=== PATIENT | female | born 1940 | race Caucasian/White ===

== ENCOUNTER 2016-03-31 14:58 | Outpatient (CLI) | payer MEDICARE, OTHER | END 2016-03-31 14:59 | disposition home or self-care (01) | DX: E87.6 Hypokalemia (principal); E53.8 Deficiency of other specified B group vitamins ==

== ENCOUNTER 2019-12-14 13:16 | Emergency (ER) | payer MEDICARE, OTHER ==
--- NOTE | 2019-12-14 13:44 | ED Physician Documentation ---
PD HPI HEAD INJURY - Stated complaint Stated Complaint: GLF,NECK PX - Chief complaint Chief Complaint: Trauma Hd/Nk - History obtained from History obtained from: Patient - Additional information Additional information: 79-year-old woman with history of asthma otherwise very healthy was taking a hike about 2 hours ago and tripped on a tree root and fell forward hitting her forehead on the ground. She feels like her head is okay but she has moderate to severe internal neck pain. No other injuries. She did not lose consciousness. She is not anticoagulated. Declines pain medication on initial evaluation. Review of Systems Ten Systems: 10 systems reviewed and negative Constitutional: reports: Reviewed and negative Eyes: reports: Reviewed and negative Ears: reports: Reviewed and negative Nose: reports: Reviewed and negative Throat: reports: Reviewed and negative Cardiac: reports: Reviewed and negative Respiratory: reports: Reviewed and negative PD PAST MEDICAL HISTORY - Past Medical History Past Medical History: Yes Respiratory: Asthma - Past Surgical History Past Surgical History: Yes /TELEVISION ENGINEER: Hysterectomy HEENT: Tonsil/Adenoidectomy - Present Medications Home Medications: Ambulatory Orders Medication Instructions Recorded Confirmed Cyanocobalamin/Folic Acid [Vitamin 1 tab PO DAILY 12/06/14 06/02/15 U27-Nuyqh Acid Tablet] Budesonide/Formoterol Fumarate 2 puffs INH DAILY 05/12/15 06/02/15 [Symbicort 80-4.5 Mcg Inhaler] Levalbuterol [Xopenex] 2 puffs INH Q4HR PRN 05/12/15 06/02/15 Calcium Carbonate/Vitamin D3 1 tab PO DAILY 06/02/15 06/02/15 [Calcium 600 + Vit D 400 Tablet] - Allergies Allergies/Adverse Reactions: Allergies Allergy/AdvReac Type Severity Reaction Status Date / Time Sulfa (Sulfonamide Allergy Rash Verified 05/12/15 08:30 Antibiotics) Latex, Natural Rubber AdvReac Rash Verified 12/14/19 13:23 - Social History Does the pt smoke?: No Smoking Status: Never smoker PD ED PE NORMAL - Vitals Vital signs reviewed: Yes - General General: Alert and oriented X 3, No acute distress - HEENT HEENT: PERRL, EOMI - Neck Neck: Other (She cannot range her neck at all due to pain. No overt midline spinal tenderness though.) - Cardiac Cardiac: RRR, No murmur - Respiratory Respiratory: No respiratory distress, Clear bilaterally - Abdomen Abdomen: Non tender - Back Back: No CVA TTP, No spinal TTP - Derm Derm: Normal color, Warm and dry - Extremities Extremities: No edema, No calf tenderness / cord - Neuro Neuro: Alert and oriented X 3, No motor deficit, No sensory deficit, Normal speech Results - Vitals Vitals: Vital Signs - 24 hr 12/13/ 13:24 Temperature 36.5 C Heart Rate 84 Respiratory 14 Rate Blood Pressure 150/95 H O2 Saturation 98 Oxygen O2 Source Room air - Rads (name of study) CT Head and Cspine Radiology: EMP read contemporaneously (Head normal, Type 2 odontoid frx, C5 posterior arch frx) PD MEDICAL DECISION MAKING - ED course ED course: 79-year-old woman presents with isolated head and neck injury after ground-level fall. CT imaging demonstrates a type II odontoid fracture and C5 posterior arch fracture. She was placed in a c-collar on my evaluation initially. She is maintained in C-spine precautions. She was accepted to [facility] ED for further evaluation and treatment of this unstable cervical spine fracture by Dr. Leong for Dr. Tere Christy. Departure - Departure Disposition: 02 Transfer Acute Care Hosp Clinical Impression: Cervical spine fracture Qualifiers: Encounter type: initial encounter Cervical vertebra fracture level: C2 Fracture type: closed Fracture morphology: type II dens Fracture alignment: nondisplaced Qualified Code(s): S12.112A - Nondisplaced Type II dens fracture, initial encounter for closed fracture Head injury Qualifiers: Encounter type: initial encounter Qualified Code(s): S09.90XA - Unspecified injury of head, initial encounter C5 cervical fracture Qualifiers: Encounter type: initial encounter Fracture type: closed Fracture morphology: other fracture Fracture alignment: nondisplaced Qualified Code(s): S12.491A - Other nondisplaced fracture of fifth cervical vertebra, initial encounter for closed fracture Condition: Serious
--- NOTE | 2019-12-14 14:23 | CT Report ---
PROCEDURE: CERVICAL SPINE WO INDICATIONS: neck injury TECHNIQUE: Noncontrast 3 mm thick sections acquired from the skull base to the T4 level. Sagittal and coronal r eformats were then constructed. For radiation dose reduction, the following was used: automated exp osure control, adjustment of mA and/or kV according to patient size. COMPARISON: None. FINDINGS: Image quality: Excellent. Bones: There is a minimally displaced fracture at the C5 spinous process which extends through the po sterior arch (series 5/image 33). There is a minimally displaced type II odontoid fracture. Severe d egenerative changes are noted within the mid cervical spine. Soft tissues: Prevertebral soft tissues are normal in thickness. No paravertebral hematomas. There is extensive right and moderate left apical pulmonary scarring. Multiple calcified nodules are visual ized within the right thyroid lobe. Atheromatous calcifications are present within the left carotid b ulb. 1. Minimally displaced type II odontoid fracture. Please note this is an unstable fracture. 2. Minimally displaced posterior C5 fracture. These findings were discussed with Dr. Powell at 2:18 PM on 12/14/2019. 3. Severe degenerative change of the cervical spine. 4. Calcified right thyroid nodules noted. If further characterization is warranted, nonemergent thyro id ultrasound could be used. Reviewed by: Lashanda Rapp MD on 12/14/2019 2:22 PM PDT Approved by: Lashanda Rapp MD on 12/14/2019 2:22 PM PDT Station ID: [id number]
--- NOTE | 2019-12-14 14:25 | CT Report ---
PROCEDURE: HEAD WO INDICATIONS: head injury TECHNIQUE: Noncontrast 4.5 mm thick angled axial sections acquired from the foramen magnum to the vertex. For r adiation dose reduction, the following was used: automated exposure control, adjustment of mA and/or kV according to patient size. COMPARISON: None. FINDINGS: Image quality: Excellent. CSF spaces: Basal cisterns are patent. No extra-axial fluid collections. Ventricles are normal in size and shape. Brain: No midline shift. No intracranial masses or hemorrhage. Mild findings likely associated with chronic microvascular ischemia including volume loss and white matter changes are noted. Mercedes-white matter interface is normal. Skull and face: Calvarium and visualized facial bones are intact, without suspicious lesions. Sinuses: Visualized sinuses and mastoids are clear. IMPRESSION: No acute intracranial findings. Reviewed by: Lashanda Rapp MD on 12/14/2019 2:23 PM PDT Approved by: Lashanda Rapp MD on 12/14/2019 2:23 PM PDT Station ID: [id number]
[2019-12-14 15:30] VITALS: BP 143/81
[2019-12-14 15:41] LABS: BASOPHILS % (AUTO) 0.4 %; EOSINOPHILS % (AUTO) 0.1 %; HGB - HEMOGLOBIN 13.3 g/dL (12.0-16.0); LYMPHOCYTES % (AUTO) 12.7 %; MEAN CORPUSCULAR HEMOGLOBIN 30.3 pg (27.0-31.0); MEAN CORPUSCULAR HGB CONC 33.4 g/dL (32.0-36.0); MEAN CORPUSCULAR VOLUME 90.7 fL (81.0-99.0); MEAN PLATELET VOLUME 8.8 fL (7.9-10.8); MONOCYTES # (AUTO) 0.5 10^3/uL (0.0-1.0); NEUTROPHILS # (AUTO) 6.5 10^3/uL (1.5-6.6); NEUTROPHILS % (AUTO) 80.3 %; PLT - PLATELET COUNT 266 10^3/uL (130-450); RED BLOOD COUNT 4.39 10^6/uL (4.20-5.40); RED CELL DISTRIBUTION WIDTH 12.5 % (12.0-15.0); WHITE BLOOD COUNT 8.1 x10^3/uL (4.8-10.8)
[2019-12-14 15:47] LABS: PT - PROTHROMBIN TIME 11.2 secs (9.9-12.6)
[2019-12-14 15:49] LABS: CREATININE 0.7 mg/dL (0.4-1.0)
== END 2019-12-14 16:30 | disposition short-term general hospital (02) ==
LOC: ED 13:16
DX: S12.112A Nondisplaced Type II dens fracture, initial encounter for closed fracture (principal); S12.110A Anterior displaced Type II dens fracture, initial encounter for closed fracture; S12.400A Unspecified displaced fracture of fifth cervical vertebra, initial encounter for closed fracture; W01.198A Fall on same level from slipping, tripping and stumbling with subsequent striking against other object, initial encounter; Y93.01 Activity, walking, marching and hiking; Y92.821 Forest as the place of occurrence of the external cause
CPT/HCPCS: 36415; 70450; 72125; 80048; 85025; 85610; 99284; 99285

== ENCOUNTER 2020-01-30 13:32 | Outpatient (CLI) | payer MEDICARE, OTHER ==
[2020-01-30 19:54] LABS: BASOPHILS % (AUTO) 0.4 %; EOSINOPHILS % (AUTO) 0.7 %; HGB - HEMOGLOBIN 12.7 g/dL (12.0-16.0); LYMPHOCYTES # (AUTO) 1.2 10^3/uL (1.5-3.5); LYMPHOCYTES % (AUTO) 20.7 %; MEAN CORPUSCULAR HEMOGLOBIN 29.9 pg (27.0-31.0); MEAN CORPUSCULAR HGB CONC 32.2 g/dL (32.0-36.0); MEAN CORPUSCULAR VOLUME 92.7 fL (81.0-99.0); MEAN PLATELET VOLUME 9.9 fL (7.9-10.8); MONOCYTES # (AUTO) 0.5 10^3/uL (0.0-1.0); NEUTROPHILS # (AUTO) 3.9 10^3/uL (1.5-6.6); NEUTROPHILS % (AUTO) 68.8 %; PLT - PLATELET COUNT 325 10^3/uL (130-450); RED BLOOD COUNT 4.25 10^6/uL (4.20-5.40); RED CELL DISTRIBUTION WIDTH 13.2 % (12.0-15.0); WHITE BLOOD COUNT 5.7 x10^3/uL (4.8-10.8)
[2020-01-30 20:19] LABS: ALBUMIN 4.3 g/dL (3.2-5.5); ALBUMIN/GLOBULIN RATIO 1.7 (1.0-2.2); BILIRUBIN,TOTAL 0.6 mg/dL (0.2-1.0); CALCIUM 9.6 mg/dL (8.5-10.3); CREATININE 0.7 mg/dL (0.4-1.0); MAGNESIUM 2.1 mg/dL (1.7-2.8); TOTAL PROTEIN 6.9 g/dL (6.7-8.2)
== END 2020-01-30 13:33 | disposition home or self-care (01) ==
LOC: LAB.S 13:32
PROVIDERS: ATTEND Internal Medicine
DX: R42 Dizziness and giddiness (principal); E87.8 Other disorders of electrolyte and fluid balance, not elsewhere classified
CPT/HCPCS: 36415; 80053; 83735; 85025

== ENCOUNTER 2022-02-06 16:58 | Outpatient (CLI) | payer MEDICARE, OTHER | END 2022-02-06 16:59 | disposition home or self-care (01) | LOC: LAB.S 16:58 | PROVIDERS: ATTEND Physician Assistant | DX: R30.0 Dysuria (principal) | CPT/HCPCS: 87077; 87086; 87181 ==

== ENCOUNTER 2022-06-02 14:53 | Outpatient (CLI) | payer MEDICARE, OTHER ==
[2022-06-02 19:38] LABS: BASOPHILS % (AUTO) 0.6 %; EOSINOPHILS # (AUTO) 0.1 10^3/uL (0.0-0.7); EOSINOPHILS % (AUTO) 0.7 %; HCT - HEMATOCRIT 40.4 % (37.0-47.0); HGB - HEMOGLOBIN 13.3 g/dL (12.0-16.0); LYMPHOCYTES # (AUTO) 1.6 10^3/uL (1.5-3.5); LYMPHOCYTES % (AUTO) 23.5 %; MEAN CORPUSCULAR HEMOGLOBIN 30.2 pg (27.0-31.0); MEAN CORPUSCULAR HGB CONC 32.9 g/dL (32.0-36.0); MEAN CORPUSCULAR VOLUME 91.8 fL (81.0-99.0); MEAN PLATELET VOLUME 9.3 fL (7.9-10.8); MONOCYTES # (AUTO) 0.7 10^3/uL (0.0-1.0); MONOCYTES % (AUTO) 9.8 %; NEUTROPHILS # (AUTO) 4.5 10^3/uL (1.5-6.6); NEUTROPHILS % (AUTO) 65.1 %; PLT - PLATELET COUNT 312 10^3/uL (130-450); RED CELL DISTRIBUTION WIDTH 13.1 % (12.0-15.0); WHITE BLOOD COUNT 6.9 x10^3/uL (4.8-10.8)
[2022-06-02 19:52] LABS: ALBUMIN 4.4 g/dL (3.2-5.5); ALBUMIN/GLOBULIN RATIO 2.1 (1.0-2.2); BILIRUBIN,TOTAL 0.5 mg/dL (0.2-1.0); CREATININE 0.5 mg/dL (0.4-1.0); POTASSIUM 4.3 mmol/L (3.5-5.0); TOTAL PROTEIN 6.5 g/dL (6.7-8.2)
== END 2022-06-02 14:54 | disposition home or self-care (01) ==
LOC: LAB.S 14:53
PROVIDERS: ATTEND Internal Medicine
DX: R30.0 Dysuria (principal); Z87.440 Personal history of urinary (tract) infections
CPT/HCPCS: 36415; 80053; 85025; 87086

== ENCOUNTER 2022-06-13 12:55 | Outpatient (CLI) | payer MEDICARE, OTHER | END 2022-06-13 12:56 | disposition home or self-care (01) | LOC: LAB.S 12:55 | PROVIDERS: ATTEND Internal Medicine | DX: R30.0 Dysuria (principal); Z87.440 Personal history of urinary (tract) infections | CPT/HCPCS: 87086 ==

== ENCOUNTER 2022-07-06 14:11 | Outpatient (CLI) | payer MEDICARE, OTHER ==
--- NOTE | 2022-07-07 11:21 | Ultrasound Report ---
PROCEDURE: Retroperitoneal INDICATIONS: HX OF CHRONIC URINARY TRACT INFECTION TECHNIQUE: Real-time scanning was performed of the retroperitoneal organs, with image documentation. COMPARISON: None. FINDINGS: Kidneys: Kidneys are normal in size. Right kidney measures 9.8 cm long; left kidney measures 10.3 c m long. Right renal cortical thickness is 1.0 cm; left renal cortical thickness is 1.1 cm. No solid masses, hydronephrosis, or nephrolithiasis. Bladder: Pre-void bladder volume is 105 mL. Post-void residual is 6 mL. Pre-void images demonstrat e no intraluminal masses or stones. On pre-void images, both ureteral jets are noted with color Dopp ler interrogation. (Of note, ureteral jets may not be detectable in up to 25% of cases due to insuff icient differences in specific gravity between ureteral and bladder urine). Miscellaneous: No free abdominal fluid. IMPRESSION: No hydronephrosis or evidence of nephrolithiasis. Reviewed by: Robson Sheriff MD on 07/07/2022 11:20 AM PDT Approved by: Robson Sheriff MD on 07/07/2022 11:20 AM PDT Station ID: [id number]
== END 2022-07-06 14:12 | disposition home or self-care (01) ==
LOC: DI 14:11
PROVIDERS: ATTEND Internal Medicine
DX: Z87.440 Personal history of urinary (tract) infections (principal)

== ENCOUNTER 2022-07-13 07:00 | Outpatient (CLI) | payer MEDICARE, OTHER ==
[2022-07-13 14:45] LABS: BILIRUBIN,URINE NEGATIVE (NEGATIVE); GLUCOSE, URINE (UA) NEGATIVE (NEGATIVE); KETONES,URINE (UA) NEGATIVE (NEGATIVE); LEUKOCYTE ESTERASE, URINE MODERATE (NEGATIVE); NITRITE,URINE NEGATIVE (NEGATIVE); OCCULT BLOOD,URINE MODERATE (NEGATIVE); PROTEIN,URINE NEGATIVE (NEGATIVE); UROBILINOGEN,URINE 0.2 (NORMAL) E.U./dL (NORMAL)
[2022-07-13 14:58] LABS: CLARITY,URINE HAZY (CLEAR); WBC,URINE >25 /HPF (0-5)
[2022-07-13 14:59] LABS: BACTERIA,URINE Few /HPF (None Seen); RBC,URINE 0-5 /HPF (0-5); SQUAMOUS EPITHELIAL CELL,UR NONE SEEN (<= Few); WBC CLUMPS,URINE PRESENT
== END 2022-07-13 23:59 | disposition home or self-care (01) ==
LOC: LAB.S 07:00
PROVIDERS: ATTEND Internal Medicine
DX: R30.0 Dysuria (principal)
CPT/HCPCS: 81001; 87086

== ENCOUNTER 2022-07-25 08:00 | Outpatient (CLI) | payer MEDICARE, OTHER ==
[2022-07-25 14:53] LABS: BILIRUBIN,URINE NEGATIVE (NEGATIVE); GLUCOSE, URINE (UA) NEGATIVE (NEGATIVE); KETONES,URINE (UA) NEGATIVE (NEGATIVE); LEUKOCYTE ESTERASE, URINE LARGE (NEGATIVE); NITRITE,URINE NEGATIVE (NEGATIVE); OCCULT BLOOD,URINE MODERATE (NEGATIVE); PROTEIN,URINE NEGATIVE (NEGATIVE); UROBILINOGEN,URINE 0.2 (NORMAL) E.U./dL (NORMAL)
[2022-07-25 15:32] LABS: BACTERIA,URINE Many /HPF (None Seen); CLARITY,URINE CLOUDY (CLEAR); RBC,URINE 0-5 /HPF (0-5); SQUAMOUS EPITHELIAL CELL,UR FEW Squamous (<= Few); WBC CLUMPS,URINE PRESENT; WBC,URINE >25 /HPF (0-5)
== END 2022-07-25 23:59 | disposition home or self-care (01) ==
LOC: LAB.S 08:00
PROVIDERS: ATTEND Internal Medicine
DX: R30.0 Dysuria (principal); Z87.440 Personal history of urinary (tract) infections
CPT/HCPCS: 81001; 87077; 87086; 87181

== ENCOUNTER 2023-01-16 11:29 | Outpatient (CLI) | payer MEDICARE, OTHER ==
[2023-01-16 14:38] LABS: BASOPHILS % (AUTO) 0.4 %; EOSINOPHILS % (AUTO) 0.6 %; HCT - HEMATOCRIT 41.5 % (37.0-47.0); HGB - HEMOGLOBIN 13.6 g/dL (12.0-16.0); LYMPHOCYTES # (AUTO) 1.2 10^3/uL (1.5-3.5); LYMPHOCYTES % (AUTO) 22.7 %; MEAN CORPUSCULAR HEMOGLOBIN 29.7 pg (27.0-31.0); MEAN CORPUSCULAR HGB CONC 32.8 g/dL (32.0-36.0); MEAN CORPUSCULAR VOLUME 90.6 fL (81.0-99.0); MEAN PLATELET VOLUME 9.5 fL (7.9-10.8); MONOCYTES # (AUTO) 0.5 10^3/uL (0.0-1.0); MONOCYTES % (AUTO) 10.4 %; NEUTROPHILS # (AUTO) 3.3 10^3/uL (1.5-6.6); NEUTROPHILS % (AUTO) 65.5 %; PLT - PLATELET COUNT 285 10^3/uL (130-450); RED BLOOD COUNT 4.58 10^6/uL (4.20-5.40); RED CELL DISTRIBUTION WIDTH 12.8 % (12.0-15.0); WHITE BLOOD COUNT 5.1 x10^3/uL (4.8-10.8)
[2023-01-16 15:00] LABS: % IRON SATURATION 31 % (20-50); ALBUMIN 4.5 g/dL (3.2-5.5); ALBUMIN/GLOBULIN RATIO 2.1 (1.0-2.2); ALKALINE PHOSPHATASE 76 IU/L (42-121); ALT ALANINE AMINOTRANSFERASE 13 IU/L (10-60); AST ASPARTATE AMINOTRANSFERASE 20 IU/L (10-42); BILIRUBIN,TOTAL 0.7 mg/dL (0.2-1.0); BUN - BLOOD UREA NITROGEN 9 mg/dL (6-20); CALCIUM 9.7 mg/dL (8.5-10.3); CARBON DIOXIDE - CO2 32 mmol/L (21-32); CHLORIDE 98 mmol/L (101-111); CHOL/HDL RATIO 2.5 (<4.4); CHOLESTEROL 211 mg/dL; CREATININE 0.6 mg/dL (0.6-1.3); CRP - C-REACTIVE PROTEIN < 0.5 mg/dL (<0.5); GFR - MDRD 95 (>89); GLUCOSE 85 mg/dL (74-104); HDL CHOLESTEROL 86 mg/dL; IRON 110 ug/dL (50-212); LDL CHOLESTEROL,CALCULATED 115 mg/dL; LDL/HDL RATIO 1.3 (<4.4); POTASSIUM 4.2 mmol/L (3.5-4.5); SODIUM 133 mmol/L (135-145); TOTAL IRON BINDING CAPACITY 351 ug/dL (250-450); TOTAL PROTEIN 6.6 g/dL (6.4-8.9); TRANSFERRIN 251 mg/dL (203-362); TRIGLYCERIDES 51 mg/dL (48-352); VLDL CHOLESTEROL 10 mg/dL
[2023-01-16 15:06] LABS: THYROID STIMULATING HORMONE 2.34 uIU/mL (0.34-5.60)
== END 2023-01-16 11:30 | disposition home or self-care (01) ==
LOC: LAB.S 11:29
PROVIDERS: ATTEND Internal Medicine
DX: J84.10 Pulmonary fibrosis, unspecified (principal); Z87.440 Personal history of urinary (tract) infections; J45.20 Mild intermittent asthma, uncomplicated; E53.8 Deficiency of other specified B group vitamins; Z79.899 Other long term (current) drug therapy; D33.3 Benign neoplasm of cranial nerves
CPT/HCPCS: 36415; 80053; 80061; 82306; 82607; 83540; 83721; 84443; 84466; 85025; 86140

== ENCOUNTER 2023-02-07 10:01 | Outpatient (CLI) | payer MEDICARE, OTHER ==
[~2023-02-07 10:01] MED LIST: GADOTERATE MEGLUMINE 10 MMOL/20 ML VIAL ONE
[2023-02-07] MEDS ORDERED: GADOTERATE MEGLUMINE 10 MMOL/20 ML VIAL IVP ONE (16:49)
--- NOTE | 2023-02-14 12:53 | MRI Report ---
PROCEDURE: MRI of brain with and without contrast. MRI orbits with and without contrast INDICATIONS: BENIGN NEOPLASM OF CRANIAL NERVES TECHNIQUE: Multiplanar multisequential MR images of the brain were obtained before and after intrave nous contrast administration. COMPARISON: None. FINDINGS: Orbits: Bilateral intraocular lens replacements noted. Both optic nerves show appropriate signal, vol ume enhancement. No evidence of recurrent or residual meningioma. Retrobulbar fat and extraocular mus cles unremarkable. Both cavernous sinuses likewise unremarkable CSF spaces: Basal cisterns are patent. No extra-axial fluid collections. Ventricles are normal in size and shape. Brain: No midline shift. No intracranial bleeds or masses. No abnormal intracranial enhancement. The brainstem appears normal. Diffusion-weighted images demonstrate no acute infarct. Normal intrav ascular flow voids are present. Mild atrophy and multifocal white matter chronic ischemic change pres ent. Skull and face: Calvarial marrow is normal in signal. Orbits appear normal. Incidental note is made of spinal instrumentation in the upper cervical spine Sinuses: Sinuses and mastoids appear clear. 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
== END 2023-02-07 10:02 | disposition home or self-care (01) ==
LOC: DI 10:01
PROVIDERS: ATTEND Internal Medicine
DX: D33.3 Benign neoplasm of cranial nerves (principal); G31.89 Other specified degenerative diseases of nervous system; I67.82 Cerebral ischemia
CPT/HCPCS: 70553; A9575